=== PATIENT | male | born 1995 | race Caucasian/White ===

== ENCOUNTER 2021-12-13 10:12 | Emergency (ER) | payer OTHER, SELFPAY ==
--- NOTE | ~2021-12-13 | XR_ITS ---
EXAMINATION: XR knee LT 3V EXAM DATE: 12/13/2021 10:47 INDICATION: trauma/2 days ago fell on kneecap while rollerskating . Initial encounter. TECHNIQUE: Left knee frontal, crosstable lateral, orthogonal oblique projections for interpretation. Additional sunrise projection. There is no prior study for comparison. FINDINGS: No evidence osteochondral defect or joint body in the left knee joint. There are no acute fractures or dislocations identified. There is no subcutaneous gas. The soft tissue is unremarkabl e. There are no radiopaque foreign bodies. IMPRESSION: 1. Left knee exam without acute osseous findings. Reviewed, dictated and finalized at location A. ANALYST REPORT WRITER
--- NOTE | 2021-12-13 10:22 | ED.LOWEXIN ---
HPI - Extremity Injury (Lower) General Chief Complaint: Extremity Injury, Lower Stated Complaint: Lt Knee Pain Time Seen by Provider: 12/13/21 10:21 Source: patient and RN notes reviewed History of Present Illness HPI Narrative: Patient is a 26-year-old male who presents the urgent care with complaints of left knee pain after he fell on Sunday. Patient states that he was rollerskating and fell onto the anterior aspect of his left knee, onto the concrete. Patient states he is elevated, used ice and took ibuprofen for the pain. Patient states the pain is increased with ambulation especially going up the stairs or any weightbearing activities. No other acute complaints. No other acute injuries from the fall. No acute distress noted. Patient read the plan of care. Some parts of this dictation were generated by voice recognition software and may contain typographical and/or grammatical inaccuracies. Related Data Allergies Allergy/AdvReac Type Severity Reaction Status Date / Time No Known Allergies Allergy Verified 12/13/21 10:29 Review of Systems Review of Systems: CONSTITUTIONAL: Denies fever, chills, or sweats. EYES: Denies visual changes, redness, or discharge. ENT: Denies rhinorrhea, congestion, sore throat, or otalgia. CARDIOVASCULAR: Denies chest pain, palpitations, or edema. RESPIRATORY: Denies cough or dyspnea. GASTROINTESTINAL: Denies abdominal pain, nausea, vomiting, or diarrhea. GENITOURINARY: Denies dysuria or hematuria. SKIN: Denies rash or itching. MUSCULOSKELETAL: Reports of right knee pain NEUROLOGIC: Denies headache, numbness, or weakness. All other systems reviewed are negative, except as documented in HPI. PMFSH Comments At the time of my signature, I reviewed and agree with the nursing past medical, surgical, social, and family history. There is no relevant family history pertinent to the patient complaint. Exam Narrative: GENERAL: This is a well-nourished, well-developed patient, in no apparent distress. HEAD: normocephalic, atraumatic. EYES: PERRL. Sclera clear/white. Vision is grossly intact. EARS: External ears normal NOSE: External nose normal with no obvious nasal discharge, nares without redness, no rhinorrhea. THROAT: Mucous membranes moist NECK: Neck supple CARDIOVASCULAR: Regular rate and rhythm without murmurs, gallops, or rubs. RESPIRATORY: Clear to auscultation. Breath sounds equal bilaterally. No wheezes, rales, or rhonchi. SKIN: warm, intact with no suspicious lesions or rash, good texture and turgor. NEURO: awake, alert, and oriented to person, place and time. There were no obvious focal neurologic abnormalities. EXTREMITIES: No obvious deformity noted to the left knee. Very mild anterior lateral patellar tenderness with ecchymosis. Anterior drawer test negative. Range of motion within normal limits. Positive strong left pedal pulse with capillary refill less than 2 seconds. Course Course Level of Care: Express Care Visit Vital Signs Vital signs: Vital Signs Temperature 97.9 F 12/13/21 10:49 Pulse Rate 78 12/13/21 10:49 Respiratory Rate 16 12/13/21 10:49 Blood Pressure 132/81 12/13/21 10:49 Pulse Oximetry 100 12/13/21 10:49 Temperature 97.9 F 12/13/21 10:49 Pulse Rate 78 12/13/21 10:49 Respiratory Rate 16 12/13/21 10:49 Blood Pressure 132/81 12/13/21 10:49 Pulse Oximetry 100 12/13/21 10:49 Reviewed MDM - Extremity Injury (Lower) MDM Narrative Medical decision making narrative: Reviewed x-ray results with the patient. He is aware the x-ray is negative for fracture or deformity. Very unlikely to have ligament injury however if pain continues, may need follow-up with an orthopedic. Otherwise keep off of the leg is much as possible with any strenuous or weightbearing activity. Keep the foot elevated with ice to the left knee and ibuprofen. Use the Noel wrap as directed. Follow-up within 2 to 5 days or for any worsening symptoms or failure
[2021-12-13 10:49] VITALS: BP 132/81; PULSE 78; RESP 16; TEMP 36.6; O2SAT 100
== END 2021-12-13 11:20 | disposition home or self-care (01) ==
PROVIDERS: Emergency Provider Nurse Practitioner Family
DX: S80.02XA Contusion of left knee, initial encounter (principal); V00.121A Fall from non-in-line roller-skates, initial encounter
CPT/HCPCS: 73562; 99203; G0463

== ENCOUNTER 2022-06-01 10:03 | Emergency (ER) | payer OTHER, SELFPAY ==
--- NOTE | 2022-06-01 10:20 | ED.BACK ---
HPI - Back Pain/Injury General Chief Complaint: Back Pain/Injury Stated Complaint: back pain Time Seen by Provider: 06/01/22 10:41 Source: patient and RN notes reviewed Mode of arrival: ambulatory Limitations: no limitations History of Present Illness HPI Narrative: 26-year-old male presents with concern for acute posterior right shoulder/upper back pain. He reports pain started prior to arrival when he was doing push-ups during his workout. Reports he was doing a set of push-ups, on approximately the 7 push-up he began having pain, he finished a set of push-ups. Reports he is having mild pain at rest, increasing pain with range of motion. Reports pain is exacerbated with taking a deep breath. pain is next to the scapula and radiates to the shoulder and down the right arm. He reports a history of similar injury and pain for which he had physical therapy in the past. He denies intervention MD elicited complaint: back pain Related Data Allergies Allergy/AdvReac Type Severity Reaction Status Date / Time No Known Allergies Allergy Verified 06/01/22 10:37 Review of Systems Review of Systems: CONSTITUTIONAL: Denies malaise, chills, sweats, or fever. CARDIOVASCULAR: Denies chest pain, palpitations, or edema. RESPIRATORY: Denies cough or dyspnea. SKIN: Denies rash or itching. Denies bruising, redness, swelling MUSCULOSKELETAL: Reports right upper back/posterior shoulder pain NEUROLOGIC: Denies numbness, weakness, or headache. All systems reviewed & are unremarkable except as noted in HPI and below PMFSH Comments At time of signature, agree with nursing past medical, surgical, social and family history. There is no relevant family history pertinent to the presenting complaint Exam Narrative: GENERAL: Well-appearing, well-nourished, and in no acute distress. HEAD: Normocephalic, atraumatic. EYES: PERRLA and EOMI. NECK: Supple. No lymphadenopathy. CHEST: Clear to auscultation. No respiratory distress. HEART: Regular rate and rhythm. Distal pulses palpable and equal, cap refill <3 seconds MUSCULOSKELETAL: Normal range of motion and strength in all extremities; 5/5 strength with shoulder abduction, abduction, flexion, extension. Normal sensation in dermatomal distributions with sensitivity to light touch and pain. No midline back or neck tenderness to palpation. No paraspinal tenderness. Scapular tenderness to palpation. Transfers from lying to sitting to standing. SKIN: Warm, dry, no rash. No ecchymosis, erythema, open wounds to back. NEURO: No focal deficits. Alert and oriented x3.Normal gait. PSYCH: Normal mood and affect Course Course Emergency Course: Patient is aware of diagnosis, understands and agrees to treatment plan. Anticipatory guidance given. Patient agrees to follow-up as directed and is aware of reasons to seek care at the emergency department. Portions of this record may have been created with voice recognition software Level of Care: Express Care Visit Vital Signs Vital signs: Reviewed. MDM - Back Pain/Injury MDM Narrative Medical decision making narrative: Patients injury and pain is consistent with musculoskeletal etiology. No signs of neurological or vascular compromise on exam. Compartments and tissues are soft without signs of compartment syndrome. Pain is felt appropriate for further evaluation on an outpatient basis. Critical Care Time Critical Care Time Critical Care Time: No Discharge Plan Discharge Clinical Impression: Strain of right trapezius muscle Patient Disposition: Home, Self-Care Condition: Stable Instructions: Muscle Strain (ED) Additional Instructions: Please follow up with your Primary Care Doctor If symptoms do not improve. Gentle exercising and stretching as tolerated. Take Motrin 800mg every 6-8 hours with food for the next 2-3 days, take muscle relaxers every 8 hours as needed for muscle spasm- do not drive or make any important decisions while on this medi
[2022-06-01 10:29] VITALS: BP 119/71; PULSE 86; RESP 19; TEMP 36.3; O2SAT 100
== END 2022-06-01 11:00 | disposition home or self-care (01) ==
PROVIDERS: Emergency Provider Nurse Practitioner
DX: S46.811A Strain of other muscles, fascia and tendons at shoulder and upper arm level, right arm, initial encounter (principal); X50.3XXA Overexertion from repetitive movements, initial encounter
CPT/HCPCS: 99213; G0463